=== PATIENT | male | born 1935 | race Caucasian/White ===

== ENCOUNTER 2016-04-02 14:06 | Outpatient (CLI) | payer MEDICARE, OTHER | END 2016-04-02 14:07 | LOC: POD 14:06 | PROVIDERS: ATTEND Podiatrist | DX: E11.41 Type 2 diabetes mellitus with diabetic mononeuropathy (principal); M20.41 Other hammer toe(s) (acquired), right foot; B35.1 Tinea unguium | CPT/HCPCS: G0463 ==